=== PATIENT | female | born 1965 | race Two or more races ===

== ENCOUNTER → 2024-06-25 | Outpatient (CLI) | payer MEDICAID, SELFPAY ==
--- NOTE | 2024-06-25 09:34 | XR_ITS ---
Examination: Bilateral hands, 6 views. Technique: AP, Oblique, Lateral each hand total 6 views Date and time of exam: June 25, 2024 0941 hrs. Indications: Bilateral hand pain and numbness beginning 4 years ago Findings: Moderate osteopenia Advanced narrowing left navicular trapezium joint, moderate osteoarthritis left first carpometacarpal joint Mild osteoarthritis interphalangeal joints Mild to moderate osteoarthritis right first carpometacarpal joint Mild osteoarthritis right interphalangeal joints No erosive arthritis No fractures Impression: Osteoarthritis as above
--- NOTE | 2024-06-25 09:34 | XR_ITS ---
Examination: Bilateral wrists 6 views Technique: AP oblique lateral each wrist total 6 views Date and time: June 25, 2024 0945 hrs. Indications: Bilateral wrist pain for years Findings: Moderate osteopenia Advanced narrowing left navicular trapezium joint Mild to moderate osteoarthritis left first carpometacarpal joint Mild to moderate osteoarthritis right first metacarpal joint No erosive arthritis No fractures Impression: Arthritic change as above
== END | disposition home or self-care (01) ==
DX: M19.042 Primary osteoarthritis, left hand (principal); M19.041 Primary osteoarthritis, right hand; M13.832 Other specified arthritis, left wrist; M13.831 Other specified arthritis, right wrist
CPT/HCPCS: 73110; 73130